=== PATIENT | male | born 1980 | race Hispanic/Latino ===

== ENCOUNTER 2018-09-22 10:20 | Outpatient (CLI) | payer MEDICAID | END 2018-09-22 10:21 | disposition home or self-care (01) | LOC: C.PAT 10:20 | DX: K85.10 Biliary acute pancreatitis without necrosis or infection (principal) ==

== ENCOUNTER 2018-09-27 09:10 | Day surgery (SDC) | payer MEDICAID ==
[2018-09-22 10:45] VITALS: BMI 24.3
[2018-09-27] MEDS ORDERED: ceFAZolin 1 gm in NS 2 GM/200 ML BAG IVPB ONE (13:17)
[2018-09-27] MEDS ORDERED: Midazolam 2 MG/2 ML VIAL ONE (13:28)
[2018-09-27] MEDS ORDERED: Propofol 10 mg/ml Inj (20 ML) ONE (13:28)
[2018-09-27] MEDS: Lidocaine/Epinephrine 1% 1:100000 10 ML IJ ONE ×2 (13:57→14:03)
[2018-09-27] MEDS: Bupivacaine 0.25% 20 ML INJ IJ ONE ×2 (13:57→14:03)
[2018-09-27] MEDS ORDERED: Dexamethasone 4 mg/1 ml IVP PRN (15:13)
[2018-09-27] MEDS: HYDROmorphone 0.5 mg/0.5 ml ISec IVP PRN ×3 (15:22→16:33)
--- NOTE | 2018-09-27 15:26 | PCM.SURG1 ---
Surgeon's Initial Post Op Note - Surgeon's Notes Surgeon: Dr. Sue [place] Layer: Dr. Vicente PGY-3 Type of Anesthesia: General Endo Pre-Operative Diagnosis: Choelcystitis Operative Findings: See operative report Post-Operative Diagnosis: Same Operation Performed: Robotic Cholecystectomy Specimen/Specimens Removed: gallbladder Estimated Blood Loss: EBL {In ML}: 10 Blood Products Given: N/A Drains Used: No Drains Post-Op Condition: Good Date of Surgery/Procedure: 09/27/18 Time of Surgery/Procedure: 15:26
[2018-09-27 17:40] VITALS: BP 120/70; PULSE 78; RESP 18; TEMP 97; O2SAT 99
--- NOTE | 2018-09-28 02:33 | OP ---
PROCEDURE DATE: 09/27/2018 PREOPERATIVE DIAGNOSES: 1. Chronic cholecystitis and cholelithiasis. 2. Recurrent pancreatitis. POSTOPERATIVE DIAGNOSES: 1. Chronic cholecystitis and cholelithiasis. 2. Recurrent pancreatitis. PROCEDURE DONE: Robotic cholecystectomy. SURGEON: The procedure was done by Ananth anna MD. ASSISTANTS: LUISITO Zacarias; and Suma Vicente DO, PGY-2 resident. ANESTHESIA: General endotracheal tube anesthesia. ESTIMATED BLOOD LOSS: Around 20 mL. DRAINS: None. PATHOLOGY: Gallbladder with the gallstone was sent for the pathology. COMPLICATIONS: None. INTRAOPERATIVE FINDINGS: The patient had changes of chronic cholecystitis and cholelithiasis. DESCRIPTION OF PROCEDURE: On intraoperative steps, this 38-year-old male was diagnosed with chronic cholecystitis and recurrent pancreatitis; and the patient was consented for the robotic cholecystectomy, possible open, brought to the OR, placed supine on the operating table. After induction of the anesthesia, the abdomen was prepped and draped in usual sterile fashion. Supraumbilical transverse incision was made using the open technique. Peritoneal cavity was entered. Pneumo was created. Another 3-8 mm port was placed in upper abdomen. Robot was brought in. Camera arm as well as arm 1 and arm 2 was docked, and the gallbladder was retracted cranially. Calot's triangle dissection was done. Cystic duct and cystic artery was identified and clipped at three places and cut in between two clips nearby gallbladder. Gallbladder was dissected free from the gallbladder fossa, taken in EndoCatch bag, taken out through the umbilical port site, and sent off the table for the pathology. There was a proper hemostasis in each and every part of the procedure. All the ports were taken out and the robot was undocked. Umbilical port site was closed in two layers, the fascia with 0-Vicryl interrupted sutures, skin with 4-0 Monocryl, and dry sterile dressing was applied. The patient tolerated the procedure well. Count of instrument and gauze was correct. There was no apparent complication. Ananth Vasquez MD
== END 2018-09-27 17:50 | disposition home or self-care (01) ==
LOC: C.SDS 09:10
PROVIDERS: ATTEND Surgery Surgical Critical Care
DX: K80.10 Calculus of gallbladder with chronic cholecystitis without obstruction (principal); K86.1 Other chronic pancreatitis
CPT/HCPCS: 47562; 88304; J0131; J0690; J1170; J2250; J2704; J3010